=== PATIENT | male | born 1950 | race African-American/Black ===

== ENCOUNTER 2018-04-26 11:41 | Emergency (ER) | payer BC, OTHER ==
[2018-04-26 11:55] VITALS: BP 134/81; PULSE 91; TEMP 97.6; BMI 30.4
--- NOTE | 2018-04-26 12:44 | PDOC ---
History of Present Illness - General Chief Complaint: Eye Problem Stated Complaint: EYE PROBLEM - History of Present Illness Initial Comments: 67-year-old male with past medical history significant for hypertension presents for evaluation of left eye pain times one day. He takes amlodipine and lisinopril for high blood pressure. He had a cataract surgery on the right eye March 25 which went well without complication and then a cataract surgery on the left eye on April 10 in [facility] until yesterday he's been fine. He describes his left eye pain is throbbing without any real exacerbating or relieving factors. 04/26/18 12:45 Past History - Past Medical History Allergies/Adverse Reactions: Allergies Allergy/AdvReac Type Severity Reaction Status Date / Time No Known Allergies Allergy Verified 04/26/18 11:50 Home Medications: Ambulatory Orders Albuterol Sulfate Inhaler - [Ventolin HFA Inhaler -] 1 - 2 inh IH Q4H #1 inhaler 11/21/12 Amlodipine Bes/Olmesartan Med [April 5-40 mg Tablet] 1 each PO DAILY 11/21/12 Azithromycin [Zithromax Z-JO (5 DAYS)] 250 mg PO ASDIR #6 tablet 11/21/12 Ibuprofen [Motrin] 800 mg PO TID PRN 11/21/12 predniSONE [Deltasone -] 40 mg PO DAILY #7 tablet 11/21/12 COPD: No HTN: Yes - Suicide/Smoking/Psychosocial Hx Smoking Status: Yes Smoking History: Current some day smoker Have you smoked in the past 12 months: Yes Number of Cigarettes Smoked Daily: 5 Information on smoking cessation initiated: No Drug/Substance Use Hx: No Substance Use Type: None Review of Systems - Review of Systems HEENTM: Yes: See HPI, Eye Pain All Other Systems: Reviewed and Negative *Physical Exam - Vital Signs Last Vital Signs Temp Pulse Resp BP Pulse Ox 97.6 F 91 H 19 134/81 99 04/26/18 11:50 04/26/18 11:50 04/26/18 11:50 04/26/18 11:50 04/26/18 11:50 - Physical Exam Comments: GENERAL: The patient is awake, alert, and fully oriented, in no acute distress. HEAD: Normal with no signs of trauma. EYES: Pupils equal, round and reactive to light, extraocular movements intact, sclera anicteric on the right and left. The right conjunctiva is normal the left conjunctiva is injected the eyeball is tender.He is photophobic on the L ENT: Ears normal, nares patent, oropharynx clear without exudates. Moist mucous membranes. NECK: Normal range of motion, supple without lymphadenopathy, JVD, or masses. LUNGS: Breath sounds equal, clear to auscultation bilaterally. No wheezes, and no crackles. HEART: Regular rate and rhythm, normal S1 and S2 without murmur, rub or gallop. ABDOMEN: Soft, nontender, normoactive bowel sounds. No guarding, no rebound. No masses. EXTREMITIES: Normal range of motion, no edema. No clubbing or cyanosis. No cords, erythema, or tenderness. NEUROLOGICAL: Cranial nerves II through XII grossly intact. Normal speech, normal gait. PSYCH: Normal mood, normal affect. SKIN: Warm, Dry, normal turgor, no rashes or lesions noted. 04/26/18 12:48 Medical Decision Making - Medical Decision Making Visual Acuity L 20/30 R 20/25 04/26/18 12:39 04/26/18 12:52 I have discussed this case with Dr. Miller from ophthalmology who will evaluate the patient in his been neck office today *DC/Admit/Observation/Transfer Diagnosis at time of Disposition: Pain, eye, left - Discharge Dispostion Disposition: HOME Condition at time of disposition: Stable Decision to Admit order: No - Referrals Referrals: ON STAFF,NOT [Primary Care Provider] - Sarabjit Miller MD [Staff Physician] - Giovanni Miller [Non Staff, Medical] - - Patient Instructions Printed Discharge Instructions: DI for Eye Pain Additional Instructions: I have gotten you an appointment with a local [employer] Dr. Miller who will see you TODAY SOON YOU LEAVE THE ER GO TO HIS OFFICE LOCATED AT [address] [place] [address] in [place], [place]. He will be able to advise you on further evaluation and treatment options. - Post Discharge Activity
== END 2018-04-26 12:59 | disposition home or self-care (01) ==
LOC: JERFT 11:41
DX: H57.12 Ocular pain, left eye (principal); I10 Essential (primary) hypertension; Z98.890 Other specified postprocedural states
CPT/HCPCS: 99281-25